=== PATIENT | female | born 1980 | race Caucasian/White ===

== ENCOUNTER → 2021-07-04 | Day surgery (SDC) | payer OTHER ==
[~2021-07-04] VITALS: Ht 170.2 cm; Wt 59.8 kg
[~2021-07-04] MED LIST: AROMASIN25 MG PO; CALCIUM ANTAC1000 M2 PO; ONE-A-DAY ESSE1 EACH PO; VITAMIN C500 MG PO; VITAMIN D 400400 IU PO; VTAMINC250TA PO; ZYRTEC 10MG10 MG PO
[2021-07-04 09:00] VITALS: BP 116/73; PULSE 73; TEMP 97.9
[2021-07-04 09:45] VITALS: BP 98/69; PULSE 76; TEMP 97.4
--- NOTE | 2021-07-04 09:45 | NUR ---
Patient returned via cart. Alseep, wakes easily to name. Postop vitals started and stable. Water and crackers provided. in to speak with patient while listened on phone call.
[2021-07-04 10:00] VITALS: BP 97/77; PULSE 67
--- NOTE | 2021-07-04 10:00 | NUR ---
Patient reclined in chair. Alert and oriented. Tolerating food and drink well. Vitals stable.
[2021-07-04 10:15] VITALS: BP 109/69; PULSE 60
--- NOTE | 2021-07-04 10:15 | NUR ---
Patient sitting up in chair. Alert and oriented. Vitals stable. Tolerating food and drink well. Denies discomfort.
--- NOTE | 2021-07-04 10:30 | NUR ---
Discontinued IV with no complications. Reviewed discharge instructions, patient verbalized understanding. Instructed to dress and open curtain when ready for discharge. Patient reports ride home is not here yet, instructed to call out when ride is here.
== END ==
LOC: SDCO 08:28
DX: K92.1 Melena (principal); K62.89 Other specified diseases of anus and rectum; K64.1 Second degree hemorrhoids; R19.4 Change in bowel habit; R15.0 Incomplete defecation; Z20.822 Contact with and (suspected) exposure to COVID-19; Z15.01 Genetic susceptibility to malignant neoplasm of breast; Z80.3 Family history of malignant neoplasm of breast
CPT/HCPCS: J2704; J3010; J7030